=== PATIENT | male | born 1955 | race Hispanic/Latino ===

== ENCOUNTER 2020-02-01 11:41 | Emergency (ER) | payer OTHER ==
[2020-02-01] MEDS ORDERED: SODIUM CHLORIDE 0.9% 1000ML 1,000 ML IV STA (11:56)
[2020-02-01] MEDS ORDERED: PANTOPRAZOLE 40 MG 10ML VIAL IV STA (11:56)
[2020-02-01] MEDS ORDERED: ONDANSETRON HCL INJ 2MG/ML 2ML 2 MG/ML VIAL IV STA (11:56)
--- NOTE | 2020-02-01 12:10 | Emergency Department Note ---
History of Present Illnes History of Present Illness Chief Complaint: Abdominal Complaints History of Present Illness This is a 64 year old male Patient in from home with complaints of LLQ pain and nausea for about 4 days. Patient reports that his PCP ordered some Xrays of his abdomen and pelvis and he was told that he had "an infection" in his abdomen. Patient was put on Augmentin and Flagyl by his doctor which he has taken for two days but his symptoms have not improved. Historian: Patient Arrival Mode: Car Schedule Hanger Required: No Onset (how long ago): day(s) (4) Location: LLQ ABDOMEN Quality: PAIN Radiation: Reports non-radiation Severity: moderate Onset quality: gradual Timing of current episode: intermittent Progression: waxing and waning Chronicity: new Context: Denies recent illness Relieving factors: none Exacerbating factors: none Associated symptoms: Reports denies other symptoms, Reports nausea/vomiting, Reports other (NO DIARRHEA, LAST BM YESTERDAY (NORMAL)) Past Medical/Family History Physician Review I have reviewed the patient's past medical and family history. Any updates have been documented here. Past Medical History Recent Fever: No Clinical Suspicion of Infectio: Yes New/Unexplained Change in Ment: No Other Medical History: BPH Past Surgical History: None Social History Smoking Cessation: Never Smoker Counseling Performed: No Alcohol Use: None Any Illegal Drug Use: No TB Exposure/Symptoms: No Physically hurt or threatened: No Family History Family history of heart diseas: No Other Any Pre-Existing Lines (PICC,: No Review of Systems Review of Systems Constitutional: Reports no symptoms EENTM: Reports no symptoms Cardiovascular: Reports no symptoms Respiratory: Reports no symptoms Gastrointestinal: Reports as per HPI Genitourinary: Reports no symptoms Musculoskeletal: Reports no symptoms Integumentary: Reports no symptoms Neurological: Reports no symptoms Psychological: Reports no symptoms Endocrine: Reports no symptoms Hematological/Lymphatic: Reports no symptoms Physical Exam Related Data Allergies: Coded Allergies: No Known Allergies (Unverified , 02/01/20) Triage Vital Signs Vital Signs Date Time Temp Pulse Resp B/P (MAP) Pulse Ox O2 Delivery O2 Flow Rate FiO2 02/01/20 11:47 98.0 93 18 143/93 99 Room Air Vital signs reviewed: Yes Physical Exam CONSTITUTIONAL Constitutional: Present well-developed, Present well-nourished HENT HENT: Present normocephalic, Present atraumatic, Present oropharynx clear/moist, Present nose normal HENT L/R: Present left ext ear normal, Present right ext ear normal EYES Eyes: Reports PERRL, Reports conjunctivae normal NECK Neck: Present ROM normal PULMONARY Pulmonary: Present effort normal, Present breath sounds normal CARDIOVASCULAR Cardiovascular: Present regular rhythm, Present heart sounds normal, Present capillary refill normal, Present normal rate GASTROINTESTINAL Abdominal: Present soft, Present bowel sounds normal, Present tender (MILD TENDERNESS LLQ WITHOUT R/G); Absent guarding, Absent mass, Absent hernia GENITOURINARY Genitourinary: Present exam deferred SKIN Skin: Present warm, Present dry MUSCULOSKELETAL Musculoskeletal: Present ROM normal NEUROLOGICAL Neurological: Present alert, Present oriented x 3, Present no gross motor or sensory deficits PSYCHOLOGICAL Psychological: Present mood/affect normal, Present judgement normal Results Laboratory Lab results reviewed: Yes Imaging Imaging results reviewed: Yes Assessment & Plan Medical Decision Making MDM LLQ ABD PAIN - CHECK CBC, CHEM'S, UA/CX, CT ABD/PELVIS - R/O UTI, DIVERTICULITIS, SBO, ABD MASS, ELECTROLYTE ABNL Reassessment Reassessment D/W PT RESULTS OF CT AND LABS, LIKELY METASTATIC PROSTATE CA - HE WANTS TO GO HOME AND WILL F/U WITH DR CARPENTER (I TOLD DR CARPENTER ABOUT FINDINGS), BENTYL 20 Q6H PRN, CONTINUE MIRALAX 1-2X PER DAY Assessment & Plan Final Impression: (1) Pelvic lymphadenopathy (2) Pelvic mass Depart Disposition: HOME, SELF-CARE Last Vital Signs Date Time Temp Pulse Resp B/P (MAP) Pulse Ox O2 Delivery O2 Flow Rate FiO2 02/01/20 11:47 98.0 93 18 143/93 99 Room Air Medications in the ED Pantoprazole Sodium 40 mg ONCE STAT IV ; Start 02/01/20 at 11:56; Stop 02/01/20 at 12:01; Status DC Ondansetron HCl 4 mg ONCE STAT IV ; Start 02/01/20 at 11:56; Stop 02/01/20 at 12:00; Status DC Sodium Chloride 1,000 ml @ 0 mls/hr Q0M STAT IV ; Start 02/01/20 at 11:56; Stop 02/01/20 at 11:59; Status DC NICHOLE MEDINA MD Feb 01, 2020 12:09
[2020-02-01 12:17] LABS: BASOPHILS % 0.3 % (0.0-1.0); EOSINOPHILS # (AUTO) 0.1 (0.0-0.4); EOSINOPHILS % 1.2 % (0.0-6.0); HEMATOCRIT 42.4 % (38.2-49.6); HEMOGLOBIN 14.6 g/dL (14.0-18.0); LYMPHOCYTES # (AUTO) 1.1 (1.0-3.2); LYMPHOCYTES % 15.2 % (18.0-39.1); MEAN CORPUSCULAR HEMOGLOBIN 30.4 pg (28-32); MEAN CORPUSCULAR HGB CONC 34.4 g/dL (31-35); MEAN CORPUSCULAR VOLUME 88.1 fL (81-99); MONOCYTES # (AUTO) 0.7 (0.2-0.8); MONOCYTES % 9.9 % (4.4-11.3); NEUTROPHILS # (AUTO) 5.2 (2.1-6.9); NEUTROPHILS % 71.5 % (38.7-80.0); PLATELET COUNT 258 x10e3/uL (140-360); RED BLOOD COUNT 4.81 x10e6/uL (4.3-5.7); RED CELL DISTRIBUTION WIDTH 13.5 % (11.7-14.4)
[2020-02-01 12:28] LABS: INR 1.1; PROTHROMBIN TIME 14.8 seconds (11.9-14.5)
[2020-02-01 12:29] LABS: PARTIAL THROMBOPLASTIN TIME 37.5 seconds (23.8-35.5)
[2020-02-01 12:35] LABS: ALBUMIN 3.8 g/dL (3.5-5.0); ALBUMIN/GLOBULIN RATIO 1.2 (0.8-2.0); CALCIUM 8.8 mg/dL (8.4-10.2); CREATININE, SERUM 1.29 mg/dL (0.72-1.25); MAGNESIUM 2.4 MG/DL (1.3-2.1)
[2020-02-01 12:43] LABS: CREATINE KINASE MB 0.6 ng/mL (0-5.0)
--- NOTE | 2020-02-01 13:24 | Diagnostic Imaging Report ---
CT of the abdomen and pelvis with contrast TECHNIQUE: CT of the abdomen and pelvis WITH intravenous contrast and WITHOUT oral contrast. Dose modulation, iterative reconstruction, and/or weight-based adjustment of the mA/kV was utilized to reduce the radiation dose to as low as reasonably achievable. IV CONTRAST: 100 mL of Isovue-370 ORAL CONTRAST: None RADIATION DOSE: Total DLP: 481 mGy*cm COMPLICATIONS: None INDICATION: ^LLQ ABD PAIN ^20200201 ^1250. COMPARISON: None. FINDINGS: LOWER THORAX: Right hemidiaphragm elevation is noted. HEPATOBILIARY: No focal hepatic lesions. Gallbladder is unremarkable. No biliary ductal dilatation. SPLEEN: No splenomegaly. PANCREAS: No focal masses or ductal dilatation. ADRENALS: No adrenal nodules. KIDNEYS/URETERS: There is hypoenhancement of the right kidney relative to the left. There is mild right hydronephrosis. No surrounding drainable fluid collection is noted. Surrounding inflammatory stranding is noted, nonspecific. There is mild right hydroureter compared to the left. The ureter courses in the region of the right greater and left retropatellar lymphadenopathy. Within the pelvis the ureters not well visualized. PELVIC ORGANS/BLADDER: Urinary bladder is decompressed and unremarkable. Prostate is within normal limits for size. There is a somewhat spiculated irregular appearing right pelvic mass at the level of the expected region of the distal ureter (axial images 74 and 75 measuring approximately 1.9 x 1.4 cm. PERITONEUM/RETROPERITONEUM: No free air or fluid. LYMPH NODES: There is diffuse retroperitoneal lymphadenopathy. For example a right retroperitoneal lymph node measures 3.0 x 1.6 cm (image 37). A left retroperitoneal lymph node measures up to 2.8 cm. There is numerable retroperitoneal and iliac chain lymph nodes. No suspicious inguinal lymphadenopathy is noted. VESSELS: Negative for abdominal aortic aneurysm. GI TRACT: Bowel loops are nondilated. Colon is identified anterior to the liver. Normal appendix is noted. No surrounding inflammatory changes are identified. Moderate stool burden is noted throughout the colon and rectum. BONES AND SOFT TISSUES: There are diffuse osseous metastatic lesions throughout the spine, ribs and pelvis. IMPRESSION: 1. Diffuse retroperitoneal and iliac chain lymphadenopathy. Diffuse osseous sclerotic metastatic lesions. Correlate with any known history of cancer. Prostate cancer is a consideration. Additional ill-defined mass versus lymph node is noted in the right hemipelvis. 2. The right ureter courses in the region of multiple lymph nodes and a ill-defined mass versus lymph node in the right hemipelvis concerning for possible mass effect. There is hypoenhancement of the right kidney relative to the left with mild to moderate right hydroureteronephrosis proximally. This could relate to obstruction versus infection. 3. Moderate colonic stool retention. Signed by: Juan Keenan MD on 02/01/2020 1:20 PM
--- OUTSIDE RECORDS SUMMARY | 2020-02-01 13:29 | XMS REPORT | Continuity of Care Document ---
Author Author [facility] t Organization [facility] Address [address] [place] [id number] Phone Unavailable Care Team Providers Care Carpet Mechanic Name Role Phone Luciana MEDINA Attphys Unavailable Problems This patient has no known problems. Allergies, Adverse Reactions, Alerts This patient has no known allergies or adverse reactions. Medications This patient has no known medications. Procedures This patient has no known procedures. Results Test Description Test Time Test Comments Results Result Comments Source CT ABDOMEN/PELVIS W 2020-02-01 13:09:00 [place] [address] Patient Name: DAVID MUÑOZ MR #: [id number] : 1955 Age/Sex: 64/M Req #: [id number] Adm Physician: Ordered by: NICHOLE MEDINA MD Report #: [id number] Location: ER Room/Bed: Procedure: [id number] CT/CT ABDOMEN/PELVIS W Exam Date: 02/01/20 Exam Time: 1250 REPORT STATUS: Signed CT of the abdomen and pelvis with contrast TECHNIQUE: CT of the abdomen and pelvis WITH intravenous contrast and WITHOUT oral contrast. Dose modulation, iterative reconstruction, and/or weight-based adjustment of the mA/kV was utilized to reduce the radiation dose to as low as reasonably achievable. IV CONTRAST: 100 mL of Isovue-370 ORAL CONTRAST: None RADIATION DOSE: Total DLP: 481 mGy*cm COMPLICATIONS: None INDICATION: LLQ ABD PAIN [id number] 1250. COMPARISON: None. FINDINGS: LOWER THORAX: Right hemidiaphragm elevation is noted. HEPATOBILIARY: No focal hepatic lesions. Gallbladder is unremarkable. No biliary ductal dilatation. SPLEEN: No splenomegaly. PANCREAS: No focal masses or ductal dilatation. ADRENALS: No adrenal nodules. KIDNEYS/URETERS: There is hypoenhancement of the right kidney relative to the left. There is mild right hydronephrosis. No surrounding drainable fluid collection is noted. Surrounding inflammatory stranding is noted, nonspecific. There is mild right hydroureter compared to the left. The ureter courses in the region of the right greater and left retropatellar lymphadenopathy. Within the pelvis the ureters not well visual ized. PELVIC ORGANS/BLADDER: Urinary bladder is decompressed and unremarkable. Prostate is within normal limits for size. There is a somewhat spiculated irregular appearing right pelvic mass at the level of the expected region of the distal ureter (axial images 74 and 75 measuring approximately 1.9 x 1.4 cm. PERITONEUM/RETROPERITONEUM: No free air or fluid. LYMPH NODES: There is diffuse retroperitoneal lymphadenopathy. For example a right retroperitoneal lymph node measures 3.0 x 1.6 cm (image 37). A left retroperitoneal lymph node measures up to 2.8 cm. There is numerable retroperitoneal and iliac chain lymph nodes. No suspicious inguinal lymphadenopathy is noted. VESSELS: Negative for abdominal aortic aneurysm. GI TRACT: Bowel loops are nondilated. Colon is identified anterior to the liver. Normal appendix is noted. No surrounding inflammatory changes are identified. Moderate stool burden is noted throughout the colon and rectum. BONES AND SOFT TISSUES: There are diffuse osseous metastatic lesions throughout the spine, ribs and pelvis. IMPRESSION: 1. Diffuse retroperitoneal and iliac chain lymphadenopathy. Diffuse osseous sclerotic metastatic lesions. Correlate with any known history of cancer. Prostate cancer is a consideration. Additional ill-defined mass versus lymph node is noted in the right hemipelvis. 2. The right ureter courses in the region of multiple lymph nodes and a ill-defined mass versus lymph node in the right hemipelvis concerning for possible mass effect. There is hypoenhancement of the right kidney relative to the left with mild to moderate right hydroureteronephrosis proximally. This could relate to obstruction versus infection. 3. Moderate colonic stool retention. Signed by: Elisabeth Keenan MD on 02/01/2020 1:20 PM Dictated By: ELISABETH KEENAN MD 1320 Transcribed By: ISSA on 02/01/20 1320 COPY TO: NICHOLE MEDINA MD
[2020-02-01 13:53] LABS: BILIRUBIN,URINE NEGATIVE (NEGATIVE); CLARITY,URINE CLEAR (CLEAR); COLOR,URINE YELLOW (YELLOW); KETONES,URINE NEGATIVE (NEGATIVE); LEUKOCYTE ESTERASE ,URINE NEGATIVE (NEGATIVE); NITRITE,URINE NEGATIVE (NEGATIVE); PROTEIN,URINE DIPSTICK NEGATIVE (NEGATIVE); URINE UROBILINOGEN 1 mg/dL (0.2 - 1)
[2020-02-01] MEDS ORDERED: IOPAMIDOL 370 MG/ML 200 ML INFUS..BTL INJ ONE (14:36)
[2020-02-01] MEDS ORDERED: SODIUM CHLORIDE 0.9% 50ML 50 ML ONE (14:36)
[2020-02-01 15:14] LABS: MUCUS,URINE RARE (RARE); RBC,URINE 0-5 /HPF (0-5); WBC,URINE (MAN) 0-5 /HPF (0-5)
== END 2020-02-01 16:40 | disposition home or self-care (01) ==
LOC: ER 12:00
DX: R10.32 Left lower quadrant pain (principal); R19.00 Intra-abdominal and pelvic swelling, mass and lump, unspecified site; R59.1 Generalized enlarged lymph nodes
CPT/HCPCS: 36415; 74177; 80053; 81001; 82550; 82553; 83690; 83735; 84484; 85025; 85610; 85730; 87086; 99284; J2405; J7030; Q9967

== ENCOUNTER → 2020-03-07 | Day surgery (SDC) | payer OTHER ==
[2020-03-04 13:48] LABS: BASOPHILS # (AUTO) 0.1 (0.0-0.1); BASOPHILS % 1.1 % (0.0-1.0); EOSINOPHILS # (AUTO) 0.1 (0.0-0.4); EOSINOPHILS % 1.3 % (0.0-6.0); HEMATOCRIT 34.3 % (38.2-49.6); HEMOGLOBIN 11.7 g/dL (14.0-18.0); LYMPHOCYTES # (AUTO) 1.4 (1.0-3.2); LYMPHOCYTES % 30.4 % (18.0-39.1); MEAN CORPUSCULAR HEMOGLOBIN 31.3 pg (28-32); MEAN CORPUSCULAR HGB CONC 34.1 g/dL (31-35); MEAN CORPUSCULAR VOLUME 91.7 fL (81-99); MONOCYTES # (AUTO) 0.5 (0.2-0.8); NEUTROPHILS # (AUTO) 2.6 (2.1-6.9); NEUTROPHILS % 55.5 % (38.7-80.0); PLATELET COUNT 165 x10e3/uL (140-360); RED BLOOD COUNT 3.74 x10e6/uL (4.3-5.7); RED CELL DISTRIBUTION WIDTH 15.9 % (11.7-14.4)
[2020-03-04 14:15] LABS: ANION GAP 14.2 mmol/L (8-16); CALCIUM 8.7 mg/dL (8.4-10.2); CREATININE, SERUM 1.26 mg/dL (0.72-1.25); POTASSIUM 4.2 mmol/L (3.5-5.1)
--- NOTE | 2020-03-04 14:28 | Diagnostic Imaging Report ---
EXAMINATION: CHEST 2 VIEWS INDICATION: Pre-operative COMPARISON: None FINDINGS: LINES/TUBES:None LUNGS:The lungs are moderately inflated. No focal consolidation or pulmonary edema. Prominent round right infrahilar opacity most likely represents a pulmonary vessel on end. PLEURA:No pleural effusion or pneumothorax. MEDIASTINUM:The cardiomediastinal silhouette appears normal in size and shape. BONES/SOFT TISSUES:No acute osseous injury. ABDOMEN:No free air under the diaphragm. IMPRESSION: No focal pneumonia or pulmonary edema. Signed by: Gely Gracia MD on 03/04/2020 2:25 PM
[~2020-03-07] MED LIST: B&O 60MG R/S 60 MG SUPP PR ONE; BICALUTAMIDE50 MG PO; CEFTRIAXONE SOD 1 GM/NS 50 ML 50 ML IV ONE; DEXAMETHASONE SOD PHOS INJ 4 MG/ML VIAL ONE; FENTANYL CITRATE/PF 100MCG/2 ML INJ ONE; FLOMAX0.4 MG PO; INDIGOTINDISULFONATE SODIUM 8 MG/ML AMP IJ ONE; IOPAMIDOL 300MG/ML 50ML INFUS..BTL IV ONE; LIDOCAINE HCL 2% LOCAL INJ 5 ML SDV VIAL INJ ONE; MIDAZOLAM HCL 2 MG/2 ML VIAL ONE; ONDANSETRON HCL INJ 2MG/ML 2ML 2 MG/ML VIAL ONE; PROPOFOL IV EMULSION 10 MG/ML 20 ML VIAL ONE; SEVOFLURANE INHAL SOLN 250 ML PEN BTL ONE
[2020-03-07 17:35] VITALS: BP 185/91
--- NOTE | 2020-03-08 02:19 | Operative Report ---
DATE OF PROCEDURE: 03/07/2020 SURGEON: Jermaine Hanna MD PREOPERATIVE DIAGNOSES: 1. Right hydronephrosis. 2. Chronic renal insufficiency. 3. Urinary tract infections. 4. Microhematuria. POSTOPERATIVE DIAGNOSES: 1. Right hydronephrosis. 2. Chronic renal insufficiency. 3. Urinary tract infections. 4. Microhematuria. 5. Lyn catheter in situ. OPERATIONS PERFORMED: 1. Cystourethroscopy with bilateral ureteral catheterization and retrograde ureteropyelography (separate procedure performed for the hematuria and urinary tract infections). 2. Interpretation of retrograde ureteropyelography, no radiologist present. 3. Supervision of fluoroscopy, no radiologist present. 4. Cystourethroscopy with insertion of right indwelling ureteral stent (separate procedure performed for the relieving of the hydronephrosis caused by the lymphadenopathy noted in the pelvis). 5. Cystourethroscopy with insertion of left indwelling ureteral stent (separate procedure performed to hopefully improve the patient's chronic renal insufficiency). 6. Interpretation of cystography. ANESTHESIA: General. COMPLICATIONS: None. CLINICAL SUMMARY: Rosas Pratt is a 65-year-old man, who has an extremely elevated PSA. He has undergone biopsies. He was found to have high-grade prostate cancer. Workup revealed the patient has lymphadenopathy throughout the pelvis and this seems to be causing right-sided hydronephrosis. The patient was brought to the operating room with the intent for cystoscopy in place in the right indwelling ureteral stent. He is aware of the risks of bleeding, infection, injury to adjacent structures, need for additional procedures and elected to proceed. The patient is currently on bicalutamide and he is pending Lupron hormone therapy injection, which is pending the availability of the drug from the main factor. OPERATIVE PROCEDURE IN DETAIL: Informed consent was verified. Rosas Pratt was properly identified, taken to the operating room, placed on the cystoscopy table in supine position. Anesthesia was uneventfully begun. The patient was then carefully and gently repositioned in the dorsal lithotomy position. All pressure points well padded. His genitalia were prepared and draped in usual sterile fashion. The cystoscope sheath with the visual obturator in place was atraumatically inserted into the patient's urethra, was guided down the unremarkable distal urethra to the bulbar region where there was a non-clinically significant wide caliber stricture. We went through this region, went through the normal sphincteric region, went through the prostate bed, which was significant for trilobar prostatic hypertrophy with an elevated median bar and a small median lobe. We entered the patient's bladder. It was obvious that there was a prostate that seemed to be growing onto the distal half of the trigone. This would be consistent with prostate cancer spreading locally. There were no suspicious lesions. Some trabeculations were noted. With the aid of the guidewire, we were able to negotiate the 5-Ukrainian open-ended catheter into the right ureter and retrograde ureteropyelograms were performed. The guidewire was left in place. Then with cystoscopic and fluoroscopic guidance, an indwelling ureteral stent was then placed, it was coiled in the patient's kidney as well as the patient's bladder. A brisk hydronephrotic drip was obtained. The wire was replaced and with cystoscope and fluoroscopic guidance, a 7-Ukrainian indwelling ureteral stent was then placed, it was coiled in the patient's kidneys as well as the patient's bladder. An identical set of maneuver was performed on the left hand side with the different findings of . An identical set of maneuver was performed on the left hand side. Interpretation of retrograde ureteropyelography contrast was instilled in retrograde fashion bilaterally. There were no tumors. There were no obvious stones. There was hydroureteronephrosis on the right hand side. The injection of contrast caused extravasation almost immediately through pyelo-lymphatic and pyelosinus backflow. The left side exhibited no hydronephrosis, but this seemed to be narrowing distally and some ureterectasis noted as well. The stents were in good position, coiled in the patient's kidneys as well as the patient's bladder at the end of the case. There was rather significant friability at the small median lobe and the bladder neck region, most likely from the friability of the prostate cancer. Therefore, after evacuating a few small clots that developed, a 20-Ukrainian Lyn catheter was then placed. It was filled with 20 mL of sterile water. it was irrigated to and fro to ensure it worked properly. Contrast was injected in retrograde fashion via the Lyn catheter. The bladder tavares were relatively smooth fluoroscopically. The Lyn balloon was in proper position. We cannot early head start teacher vesicoureteric reflux on this study. The patient's bladder was drained. Cystoscope was withdrawn. The belladonna and opium suppository were placed, revealing a 40 g prostate with diffuse nodularity that was relatively fixed. The patient was then uneventfully reversed from anesthesia and taken to recovery room in stable condition. There were no complications to the procedure. The patient tolerated the procedure well. Estimated blood loss was minimal. Explicit postop instructions were given and we will plan to follow the patient up in the near future for a Lupron injection as soon as the medication is available. MD SORAIDA Schmitt/GABY /[id number]
== END | disposition home or self-care (01) ==
LOC: OR 12:43
PROVIDERS: ATTEND Urology
DX: N13.30 Unspecified hydronephrosis (principal); C61 Malignant neoplasm of prostate; C79.9 Secondary malignant neoplasm of unspecified site; N39.0 Urinary tract infection, site not specified; N18.9 Chronic kidney disease, unspecified; N35.912 Unspecified bulbous urethral stricture, male; N40.3 Nodular prostate with lower urinary tract symptoms; N40.1 Benign prostatic hyperplasia with lower urinary tract symptoms; R39.14 Feeling of incomplete bladder emptying; R35.1 Nocturia; N32.89 Other specified disorders of bladder; R80.9 Proteinuria, unspecified; R59.0 Localized enlarged lymph nodes; E66.9 Obesity, unspecified; Z68.33 Body mass index [BMI] 33.0-33.9, adult
CPT/HCPCS: 36415; 71046; 74420; 80048; 85025; 93005; C1758; C1769; C2617; J0696; J1100; J2001; J2250; J2405; J3010

== ENCOUNTER → 2020-04-29 | Outpatient (CLI) | payer OTHER ==
[~2020-04-29] MED LIST changes: -B&O 60MG R/S 60 MG SUPP PR ONE; -CEFTRIAXONE SOD 1 GM/NS 50 ML 50 ML IV ONE; -DEXAMETHASONE SOD PHOS INJ 4 MG/ML VIAL ONE; -FENTANYL CITRATE/PF 100MCG/2 ML INJ ONE; -INDIGOTINDISULFONATE SODIUM 8 MG/ML AMP IJ ONE; -IOPAMIDOL 300MG/ML 50ML INFUS..BTL IV ONE; -LIDOCAINE HCL 2% LOCAL INJ 5 ML SDV VIAL INJ ONE; -MIDAZOLAM HCL 2 MG/2 ML VIAL ONE; -ONDANSETRON HCL INJ 2MG/ML 2ML 2 MG/ML VIAL ONE; -PROPOFOL IV EMULSION 10 MG/ML 20 ML VIAL ONE; -SEVOFLURANE INHAL SOLN 250 ML PEN BTL ONE
--- NOTE | 2020-04-29 21:44 | Diagnostic Imaging Report ---
Bone Scan, delayed phase INDICATION: C61: Malignant neoplasm of prostate COMPARISON: CT abdomen/pelvis 02/01/2020 REPORT: Approximately 3 hours following intravenous administration of 27.2 mCi of Tc-99m MDP, delayed total body images in the anterior and posterior projections and selected spot images were obtained. Diffusely increased tracer is seen in the skull, spine, ribs, manubrium, sternum, clavicles, scapulae, pelvis, right humeral shaft, left humeral neck and bilateral femurs proximally. Accumulation of tracer in the soft tissues or urinary tract is very minimal. 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 The scan meets criteria of a "superscan". Signed by: Dr. Denise Ivory M.D. on 04/29/2020 9:41 PM
== END ==
LOC: NM 08:03
PROVIDERS: ATTEND Urology
DX: C61 Malignant neoplasm of prostate (principal)
CPT/HCPCS: 78306; A9503; A9570

== ENCOUNTER 2020-05-10 11:51 | Emergency (ER) | payer OTHER ==
[~2020-05-10] VITALS: Ht 165.1 cm; Wt 81.6 kg
[2020-05-10] MEDS ORDERED: OXYBUTYNIN CHLOR5 MG PO (12:11)
[2020-05-10 12:58] VITALS: BP 155/78
== END 2020-05-10 13:00 | disposition home or self-care (01) ==
LOC: ER 11:59
DX: I10 Essential (primary) hypertension (principal)
CPT/HCPCS: 93005; 99282

== ENCOUNTER → 2020-07-11 | Day surgery (SDC) | payer OTHER ==
[2020-07-09 14:31] LABS: BASOPHILS % 0.7 % (0.0-1.0); EOSINOPHILS # (AUTO) 0.1 (0.0-0.4); EOSINOPHILS % 1.4 % (0.0-6.0); HEMATOCRIT 23.3 % (38.2-49.6); HEMOGLOBIN 7.9 g/dL (14.0-18.0); LYMPHOCYTES # (AUTO) 0.7 (1.0-3.2); LYMPHOCYTES % 17.1 % (18.0-39.1); MEAN CORPUSCULAR HEMOGLOBIN 32.6 pg (28-32); MEAN CORPUSCULAR HGB CONC 33.9 g/dL (31-35); MEAN CORPUSCULAR VOLUME 96.3 fL (81-99); MONOCYTES # (AUTO) 0.4 (0.2-0.8); MONOCYTES % 8.4 % (4.4-11.3); NEUTROPHILS # (AUTO) 3.1 (2.1-6.9); NEUTROPHILS % 71.9 % (38.7-80.0); PLATELET COUNT 203 x10e3/uL (140-360); RED BLOOD COUNT 2.42 x10e6/uL (4.3-5.7); RED CELL DISTRIBUTION WIDTH 13.2 % (11.7-14.4)
[2020-07-09 14:51] LABS: ALBUMIN 3.6 g/dL (3.5-5.0); ALBUMIN/GLOBULIN RATIO 1.1 (0.8-2.0); ANION GAP 18.8 mmol/L (8-16); CALCIUM 7.6 mg/dL (8.4-10.2); CREATININE, SERUM 4.45 mg/dL (0.72-1.25); POTASSIUM 4.8 mmol/L (3.5-5.1)
[~2020-07-11] MED LIST changes: +B&O 60MG R/S 60 MG SUPP PR ONE; +CEFTRIAXONE SOD 1 GM VIAL ONE; +GENTAMICIN 80MG/NS 100 ML 100 ML IV ONE; +IOPAMIDOL 300MG/ML 50ML INFUS..BTL IV ONE; +OXYBUTYNIN CHLOR5 MG PO; +SODIUM CHLORIDE 0.9% 50ML 50 ML ONE; +XTANDI40 MG PO
[2020-07-11 17:35] VITALS: BP 165/79
== END | disposition home or self-care (01) ==
LOC: OR 13:56
PROVIDERS: ATTEND Urology
DX: N13.1 Hydronephrosis with ureteral stricture, not elsewhere classified (principal); C61 Malignant neoplasm of prostate; C79.9 Secondary malignant neoplasm of unspecified site; Z46.6 Encounter for fitting and adjustment of urinary device; N18.9 Chronic kidney disease, unspecified; N39.0 Urinary tract infection, site not specified; N32.89 Other specified disorders of bladder; N35.919 Unspecified urethral stricture, male, unspecified site; N40.1 Benign prostatic hyperplasia with lower urinary tract symptoms; R39.14 Feeling of incomplete bladder emptying; R35.1 Nocturia; R80.9 Proteinuria, unspecified; E66.9 Obesity, unspecified; D64.9 Anemia, unspecified; K21.9 Gastro-esophageal reflux disease without esophagitis; Z01.812 Encounter for preprocedural laboratory examination; Z01.818 Encounter for other preprocedural examination; Z20.822 Contact with and (suspected) exposure to COVID-19; Z87.891 Personal history of nicotine dependence
CPT/HCPCS: 36415; 74018; 74420; 80053; 85025; 87086; C1758; C2617; J0696; J1580; U0002

== ENCOUNTER 2020-08-13 19:35 | Inpatient (IN) | payer OTHER ==
[~2020-08-13] VITALS: Ht 165.1 cm; Wt 73.9 kg
[~2020-08-13 19:35] MED LIST changes: -B&O 60MG R/S 60 MG SUPP PR ONE; -CEFTRIAXONE SOD 1 GM VIAL ONE; -GENTAMICIN 80MG/NS 100 ML 100 ML IV ONE; -IOPAMIDOL 300MG/ML 50ML INFUS..BTL IV ONE; -SODIUM CHLORIDE 0.9% 50ML 50 ML ONE
[2020-08-13 19:59] LABS: BASOPHILS % 0.3 % (0.0-1.0); EOSINOPHILS % 0.4 % (0.0-6.0); HEMATOCRIT 26.3 % (38.2-49.6); LYMPHOCYTES # (AUTO) 0.8 (1.0-3.2); LYMPHOCYTES % 12.3 % (18.0-39.1); MEAN CORPUSCULAR HEMOGLOBIN 31.9 pg (28-32); MEAN CORPUSCULAR HGB CONC 34.2 g/dL (31-35); MEAN CORPUSCULAR VOLUME 93.3 fL (81-99); MONOCYTES # (AUTO) 0.6 (0.2-0.8); MONOCYTES % 8.5 % (4.4-11.3); NEUTROPHILS # (AUTO) 5.3 (2.1-6.9); NEUTROPHILS % 77.8 % (38.7-80.0); PLATELET COUNT 386 x10e3/uL (140-360); RED BLOOD COUNT 2.82 x10e6/uL (4.3-5.7); RED CELL DISTRIBUTION WIDTH 13.9 % (11.7-14.4)
[2020-08-13 20:20] LABS: ALBUMIN 3.4 g/dL (3.5-5.0); ALBUMIN/GLOBULIN RATIO 0.8 (0.8-2.0); ANION GAP 17.3 mmol/L (8-16); CALCIUM 9.1 mg/dL (8.4-10.2); CREATININE, SERUM 2.38 mg/dL (0.72-1.25); POTASSIUM 4.3 mmol/L (3.5-5.1)
[2020-08-13 20:28] LABS: CREATINE KINASE MB 1.3 ng/mL (0-5.0)
[2020-08-13] MEDS ORDERED: SODIUM CHLORIDE 0.9% 500ML 500 ML IV ONE (22:00)
[2020-08-13 22:12] LABS: CLARITY,URINE CLOUDY (CLEAR); COLOR,URINE YELLOW (YELLOW); KETONES,URINE NEGATIVE (NEGATIVE); LEUKOCYTE ESTERASE ,URINE SMALL (NEGATIVE); NITRITE,URINE NEGATIVE (NEGATIVE); PROTEIN,URINE DIPSTICK 2+ (NEGATIVE); URINE UROBILINOGEN 0.2 mg/dL (0.2 - 1)
[2020-08-13 22:13] LABS: BACTERIA,URINE MODERATE /HPF; RBC,URINE 21-50 /HPF (0-5)
[2020-08-13] MEDS ORDERED: CEFTRIAXONE SOD 1 GM in SODIUM CHLORIDE 0.9% 50ML 50 ML IV ONE (22:30)
[2020-08-13] MEDS ORDERED: CEFTRIAXONE SOD 1 GM/50 ML BAG IV SCH (22:30)
[2020-08-13] MEDS ORDERED: CEFTRIAXONE SOD 1 GM in SODIUM CHLORIDE 0.9% 50ML 50 ML IV SCH (22:30)
[2020-08-14] MEDS: ONDANSETRON HCL INJ 2MG/ML 2ML 2 MG/ML VIAL IV PRN ×2 (01:58→10:27)
[2020-08-14] MEDS: MORPHINE SULFATE INJ 4 MG/ML INJ 1ML IV PRN ×2 (03:10→10:27)
[2020-08-14] MEDS: SODIUM CHLORIDE 0.9% 1000ML 1,000 ML IV SCH ×3 (03:10→13:42)
[2020-08-14 13:10] VITALS: BP 159/75
[2020-08-14 13:12] VITALS: BP 159/75
[2020-08-14] MEDS ORDERED: DIPHENHYDRAMINE HCL 25 MG CAP PO PRN (14:15)
[2020-08-14] MEDS ORDERED: ACETAMINOPHEN 325 MG TAB PO PRN (14:15)
[2020-08-14] MEDS ORDERED: TRAMADOL HCL 50 MG TAB PO PRN (14:15)
[2020-08-14] MEDS ORDERED: DOCUSATE SODIUM 100 MG CAP PO PRN (14:15)
[2020-08-14] MEDS ORDERED: ALBUTEROL/IPRATROPIUM 3 ML NEB NEB PRN (14:15)
[2020-08-14] MEDS ORDERED: ONDANSETRON HCL INJ 2MG/ML 2ML 2 MG/ML VIAL IV PRN (14:15)
[2020-08-14] MEDS ORDERED: POLYETHYLENE GLYCOL 3350 17 GM PACK PO PRN (14:15)
[2020-08-14] MEDS ORDERED: HYDRALAZINE HCL 20 MG/ML VIAL IV PRN (14:15)
[2020-08-14] MEDS ORDERED: MORPHINE SULFATE INJ 2 MG/ML SYR IV PRN (14:30)
[2020-08-14] MEDS ORDERED: DEXAMETHASONE SOD PHOS 10 MG/1 ML VIAL IV ONE (16:00)
[2020-08-14 16:15] VITALS: BP 126/65
[2020-08-14] MEDS ORDERED: MORPHINE SULFATE INJ 4 MG/ML INJ 1ML IV PRN (16:30)
[2020-08-14 19:33] LABS: ANION GAP 14.6 mmol/L (8-16); CALCIUM 8.5 mg/dL (8.4-10.2); CREATININE, SERUM 2.21 mg/dL (0.72-1.25); POTASSIUM 4.6 mmol/L (3.5-5.1)
[2020-08-14 19:56] VITALS: BP 157/72
[2020-08-14] MEDS ORDERED: MELATONIN 5 MG TABLET PO PRN (21:00)
[2020-08-15] MEDS ORDERED: DEXAMETHASONE SOD PHOS INJ 4 MG/ML VIAL IV SCH
== END 2020-08-14 20:06 | disposition short-term general hospital (02) | DRG 723 ==
LOC: ER 19:50 → ERHOLD 08-14 01:13 → IMCU 08-14 12:31
PROVIDERS: ADMIT Internal Medicine; ATTEND Internal Medicine
DX: C61 Malignant neoplasm of prostate (principal); N39.0 Urinary tract infection, site not specified; C79.51 Secondary malignant neoplasm of bone; N13.30 Unspecified hydronephrosis; N40.1 Benign prostatic hyperplasia with lower urinary tract symptoms; R33.8 Other retention of urine; I12.9 Hypertensive chronic kidney disease with stage 1 through stage 4 chronic kidney disease, or unspecified chronic kidney disease; N18.9 Chronic kidney disease, unspecified; R31.29 Other microscopic hematuria; Z20.822 Contact with and (suspected) exposure to COVID-19
CPT/HCPCS: 36415; 51700; 70450; 71045; 72146; 72148; 74176; 76770; 80048; 80053; 81001; 82550; 82553; 83605; 84484; 85025; 87040; 87086; 87186; 93005; 99285; J0696; J1100; J2270; J2405; J7030; J7040; U0002